=== PATIENT | male | born 1990 | race Caucasian/White ===

== ENCOUNTER 2020-08-04 15:27 | Emergency (ER) | payer MEDICAID ==
[~2020-08-04] VITALS: Ht 198.1 cm; Wt 102.3 kg
[2020-08-04] MEDS ORDERED: orphenadrine citrate 60mg/2ml inj. IM ONE (15:35)
[2020-08-04] MEDS ORDERED: ketorolac trometh inj. 60 MG/2 ML VIAL IM ONE (15:35)
[2020-08-04 15:48] VITALS: BP 134/87
[2020-08-04] MEDS ORDERED: ORPH100T2 PO (15:59)
[2020-08-04] MEDS ORDERED: NAPR-56 PO (15:59)
== END 2020-08-04 17:31 | disposition home or self-care (01) ==
LOC: ER 15:27
DX: S39.012A Strain of muscle, fascia and tendon of lower back, initial encounter (principal); M62.838 Other muscle spasm; M54.5 Low back pain; Z79.899 Other long term (current) drug therapy; X58.XXXA Exposure to other specified factors, initial encounter; Y93.89 Activity, other specified; Y92.89 Other specified places as the place of occurrence of the external cause; Y99.8 Other external cause status
CPT/HCPCS: 96372; 99284; J1885; J2360